=== PATIENT | male | born 1955 | race Caucasian/White ===

== ENCOUNTER 2019-06-17 12:05 | Inpatient (IN) | payer OTHER ==
[~2019-06-17] VITALS: Ht 185.4 cm; Wt 88.6 kg
--- NOTE | ~2019-06-17 | EC ---
PATIENT:PRESTON MARCELINO DATE OF SERVICE: 06/17/19 SEX: M MEDICAL RECORD: [id number] DATE OF : 55 LOCATION:D.M2 D.213 AGE OF PATIENT: 64 ADMISSION DATE: 06/17/19 REFERRING PHYSICIAN: INTERPRETING PHYSICIAN: INOCENTE BARTON MD ECHOCARDIOGRAM REPORT ECHO CHARGES 4 ECHO COMPLETE Date: 06/17/19 CLINICAL DIAGNOSIS: CP/ SOB ECHOCARDIOGRAPHIC MEASUREMENTS (adult normal given) AC root (d.<3.7cm) 2.5 cm LV Septum d (<1.2 cm> 0.7 cm Valve Excursion 1.8 cm LV Septum (systole) 0.8 cm Left Atria (s.<4.0cm> 3.5 cm LVPW d(<1.2cm) 0.9 cm RV (d.<2.3cm) 3.1 cm LVPW (sytole) 1.3 cm LV diastole(<5.6CM) 6.1 cm MV E-F(>70mm/sec) cm LV systole 5.1 cm LVOT Diameter 2.0 cm MV exc.(>10mm) cm Est.ejection fraction (50-75%) % DOPPLER: LVIT cm/sec A 68 cm/sec E 68 cm/sec LA cm/sec RVSP 27.3 mmHg LVOT 86 cm/sec AOP1/2T m/s Asc. Ao 109 cm/sec RVOT 72 cm/sec RA cm/sec PA 85 cm/sec AV Gradient Peak 4.7 mmHg AV Mean 2.5 mmHg AV Area 2.6 cm MV Gradient Peak 2.6 mmHg MV Mean 1.3 mmHg MV Area cm COMMENTS: Cashier Receptionist: Charo BUCK Almond Huller: Magalie Lopez TAPE# PACS Pericardial Effusion N DATE OF SERVICE: 06/17/2019 ECHOCARDIOGRAM FINDINGS: 1. Left ventricular chamber size is within normal limits. Left ventricular systolic function is normal. Overall ejection fraction estimated at 55% to 60%. 2. Left atrium, right atrium, and right ventricle chamber sizes are within normal limits. 3. Valvular structures have normal structure and motion. ECHOCARDIOGRAM REPORT [id number] PRESTON MARCELINO 4. Doppler interrogation only reveals trace tricuspid regurgitation, no other valvular insufficiency or stenosis. Pulmonary systolic pressure is normal estimated at 27 mmHg. 5. No evidence of pericardial effusion or left ventricular thrombus. TRANSINT:[id number] Voice Confirmation ID: [id number] DOCUMENT ID: [id number] INOCENTE BARTON MD CC: [id number] DICTATION DATE: 06/17/191650 BOTTOM HOOP DRIVER: 06/17/192026 ADM IN [place] [id number] [place] [address]
[2019-06-17] MEDS ORDERED: LIPITOR40 MG PO (12:22)
[2019-06-17] MEDS ORDERED: AMBIEN10 MG PO (12:23)
[2019-06-17] MEDS ORDERED: NEURONTIN 300300 MG PO (12:23)
[2019-06-17] MEDS ORDERED: ELIQUIS5 MG PO ×2 (12:24→12:25)
[2019-06-17 12:57] LABS: BASOPHILS 0.1 % (0-2); EOSINOPHILS 0.7 % (0-7); HEMATOCRIT 42.1 % (42.0-54.0); HEMOGLOBIN 14.7 g/dL (13.5-17.5); IMMATURE GRANULOCYTES 0.1 % (0-5); LYMPHOCYTES 18.6 % (15-50); MCH 32.2 pg (26.0-34.0); MCHC 34.9 g/dL (31.0-37.0); MCV 92.1 fL (80.0-100.0); MEAN PLATELET VOLUME 8.5 fL (7.4-10.4); MONOCYTES 12.5 % (2-11); PLATELET COUNT 285 10x3/uL (130-400); RBC 4.57 10x6/uL (4.20-6.10); RDW 12.5 % (11.5-14.5); WBC 8.2 10x3/uL (4.8-10.8)
[2019-06-17 13:10] LABS: CARBON DIOXIDE 32.8 mmol/L (21.0-32.0); CREATININE - SERUM 0.8 mg/dL (0.6-1.3); GLUCOSE 104 mg/dL (74-106); UREA NITROGEN 11 mg/dL (7-18); eGFR NON AFRICAN AMERICAN > 90 mL/min (90-120)
[2019-06-17 13:18] LABS: APTT 34.1 SECONDS (22.8-39.4); CALC OSMOLALITY 272 mosm/kg (275-300); CHLORIDE - SERUM 98 mmol/L (98-107); INR 1.21 (0.85-1.17); POTASSIUM - SERUM 3.9 mmol/L (3.5-5.1); PROTIME 14.8 SECONDS (11.6-15.0); SODIUM 137 mmol/L (136-145)
[2019-06-17 13:27] LABS: D-DIMER-QUANTITATIVE 1.87 ug/mLFEU (0.20-0.54)
[2019-06-17 13:30] VITALS: BP 131/80
[2019-06-17 13:36] LABS: ALBUMIN 3.4 g/dL (3.4-5.0); ALKALINE PHOSPHATASE 60 U/L (46-116); ALT (SGPT) 33 U/L (10-68); BILIRUBIN - TOTAL 0.65 mg/dL (0.2-1.3); CREATINE KINASE 123 UL (21-232); MAGNESIUM - SERUM 2.3 mg/dL (1.8-2.4); PROTEIN - SERUM 8.6 g/dL (6.4-8.2)
[2019-06-17 13:37] LABS: CKMB 0.6 U/L (0.0-3.6); TROPONIN-I < 0.017 ng/mL (0.000-0.060)
--- NOTE | 2019-06-17 14:09 | NUR ---
PT OUT OF ED AT THIS TIME FOR ORDERED CT SCAN, TRANSPORTED VIA STRETCHER, NO SIGNS OF DISTRESS NOTED WHEN LEAVING.
[2019-06-17 14:30] VITALS: BP 133/81
[2019-06-17 15:30] VITALS: BP 132/85
[2019-06-17 17:38] VITALS: BP 159/88; Ht 185.4 cm; Wt 88.6 kg
--- NOTE | 2019-06-17 18:50 | NUR ---
PATIENT SITTING UP IN CHAIR AT BEDSIDE. NO COMPLAINTS OR SIGNS OF DISTRESS. IV INTACT. CALL LIGHT WITHIN REACH. WAITING FOR PAIN MEDS TO BE ORDERED BY BREA BUSCH.
[2019-06-17 20:20] LABS: UDS - AMPHET NEGATIVE QUAL (NEGATIVE); UDS - BARB NEGATIVE QUAL (NEGATIVE); UDS - BENZO NEGATIVE QUAL (NEGATIVE); UDS - COCAINE NEGATIVE QUAL (NEGATIVE); UDS - OPIATE POSITIVE QUAL (NEGATIVE); UDS - PCP NEGATIVE QUAL (NEGATIVE); UDS - THC NEGATIVE QUAL (NEGATIVE)
[2019-06-17 20:30] VITALS: BP 130/73
--- NOTE | 2019-06-17 20:33 | NUR ---
RECIEVED SITTING UP ON SIDE OF THE BED HOLDING LEFT SIDE RIBS. STATING " I'M IN PAIN". NOTIFIED NARAYAN BLUM WITH NEW ORDERS FOR MORPHINE AND ZOFRAN Q4 HRPRN. ALERT AND ORIENTED X4. UP AD JAVIER. COLLECTED URINE AND SENT TO THE LAB. IV TO LEFT AC SL. DENIES ANY OTHER NEEDS AT TIS TIME.
[2019-06-18] VITALS: BP 110/68
--- NOTE | 2019-06-18 02:50 | NUR ---
RESTING IN BED WITH EYES CLOSED AT THIS TIME. REQUEST NOT TO BE WOKE UP. STATED HE HAS'NT SLEPT IN 2 DAYS D/T PAIN. WILL HONOR REQUEST. AIDE AWARE.
[2019-06-18 05:47] LABS: BASOPHILS 0.4 % (0-2); EOSINOPHILS 1.2 % (0-7); HEMATOCRIT 40.5 % (42.0-54.0); HEMOGLOBIN 13.7 g/dL (13.5-17.5); IMMATURE GRANULOCYTES 0.1 % (0-5); LYMPHOCYTES 22.3 % (15-50); MCH 31.6 pg (26.0-34.0); MCHC 33.8 g/dL (31.0-37.0); MCV 93.5 fL (80.0-100.0); MEAN PLATELET VOLUME 8.5 fL (7.4-10.4); MONOCYTES 9.1 % (2-11); NEUTROPHILS 66.9 % (40-80); PLATELET COUNT 269 10x3/uL (130-400); RBC 4.33 10x6/uL (4.20-6.10); RDW 12.8 % (11.5-14.5); WBC 6.9 10x3/uL (4.8-10.8)
[2019-06-18 06:25] LABS: CALC OSMOLALITY 272 mosm/kg (275-300); CALCIUM 9.7 mg/dL (8.5-10.1); CARBON DIOXIDE 32.4 mmol/L (21.0-32.0); CHLORIDE - SERUM 99 mmol/L (98-107); CREATININE - SERUM 0.8 mg/dL (0.6-1.3); GLUCOSE 105 mg/dL (74-106); MAGNESIUM - SERUM 2.2 mg/dL (1.8-2.4); PHOSPHOROUS 4.4 mg/dL (2.5-4.9); PRO BNP 12 pg/mL (0-125); SODIUM 137 mmol/L (136-145); UREA NITROGEN 10 mg/dL (7-18); eGFR NON AFRICAN AMERICAN > 90 mL/min (90-120)
[2019-06-18 06:27] LABS: POTASSIUM - SERUM 4.5 mmol/L (3.5-5.1)
[2019-06-18 06:57] LABS: INR 1.2 (0.85-1.17); PROTIME 14.7 SECONDS (11.6-15.0)
[2019-06-18 06:59] LABS: APTT 43.1 SECONDS (22.8-39.4)
[2019-06-18 08:00] VITALS: BP 115/65
[2019-06-18 12:00] VITALS: BP 124/82
--- NOTE | 2019-06-18 14:00 | MORECARE ---
CASE MANAGEMENT DISCHARGE SUMMARY PATIENT: PRESTON MTZ UNIT: [id number] ADM DATE: 06/17/19 AGE: 64 : 55 SEX: M ROOM/BED: D.2133 AUTHOR: LINNDOC PHYSICIAN: REFERRING PHYSICIAN: STEPHEN CORBETT MD DATE OF SERVICE: 06/18/19 Discharge Plan Patient Name: PRESTON MTZ Facility: [facility]:[place] : 1955 Planned Disposition: Home Anticipated Discharge Date: 06/20/19 Discharge Date: Expected LOS: 3 Initial Reviewer: [email or web address] Initial Review Date: 06/17/2019 Generated: 06/18/19 2:59 pm DCP- Discharge Planning Updated by [email or web address]: Mary Schafer on 06/18/19 12:[address] DC PLAN: Rerun home independently with . ANTICIPATED DC NEEDS: Denied known dc needs at time of assessment. CM met with patient and his to complete initial dc planning assessment. CM educated patient on the CM role and verbal consent given by patient to complete assessment. CM verified patient's address, phone number, and emergency contact phone numbers. Patient lives at home independently with his . At discharge patient plans to return home and feels this is a safe discharge. CM discussed availability of home health, rehab services, and medical equipment. Patient denied known discharge needs at this time. Transportation provider at discharge will be his . CM will continue to follow and will assist as needed with dc plans/needs. Mary Schafer RN, [facility] DCPIA - Discharge Planning Initial Assessment Updated by [email or web address]: Mary Schafer on 06/18/19 1:55 pm * Is the patient Alert and Oriented? Yes * How many steps to enter\exit or inside your home? * PCP Dr. Nath in [place] * Pharmacy [facility] in [place] * Preadmission Environment Home with Family * ADLs Independent * Equipment None * List name and contact numbers for known caregivers / representatives who currently or will assist patient after discharge: Penelope Mtz - - [phone] * Verbal permission to speak to the caregivers and representatives has been obtained from the patient. Yes * Community resources currently utilized None * Additional services required to return to the preadmission environment? No * Can the patient safely return to the preadmission environment? Yes * Has this patient been hospitalized within the prior 30 days at any hospital? No Patient Name: PRESTON MTZ Page [id number] at 1400 All edits/amendments must be made on the electronic document DICTATION DATE: 06/18/191358 ASPHALT SMOOTHER: JOANNA 06/18/19 135 RPT#: [id number] DC DATE: STATUS: ADM IN [facility] [address] [place] [address] END OF REPORT
[2019-06-18 14:46] LABS: INR 1.15 (0.85-1.17); PROTIME 14.1 SECONDS (11.6-15.0)
[2019-06-18 16:00] VITALS: BP 116/70
--- NOTE | 2019-06-18 19:48 | NUR ---
PT SITTING UP ON THE SIDE OF BED ALERT AND ORIENTED X4 COMPLAING OF CONSTIPATION. PT STATES THAT HE HASN'T HAD A BOWEL MOVEMENT IN X3 DAYS. WARM PRUNE JUICE PROVIDED. PT DENIES ANY FURTHER NEEDS AT THIS TIME. BED LOW CALL LIGHT WITHIN REACH. WILL CONTINUE TO MONITOR.
[2019-06-18 20:30] VITALS: BP 127/75
--- NOTE | 2019-06-19 04:11 | NUR ---
I have reviewed this patient and I concur with the Shift Assessment completed by the Licensed Practical Nurse today this shift.
[2019-06-19 05:36] LABS: BASOPHILS 0.2 % (0-2); HEMATOCRIT 37.9 % (42.0-54.0); HEMOGLOBIN 12.7 g/dL (13.5-17.5); IMMATURE GRANULOCYTES 0.2 % (0-5); LYMPHOCYTES 28.5 % (15-50); MCH 31.4 pg (26.0-34.0); MCHC 33.5 g/dL (31.0-37.0); MCV 93.8 fL (80.0-100.0); MEAN PLATELET VOLUME 8.5 fL (7.4-10.4); MONOCYTES 13.1 % (2-11); PLATELET COUNT 291 10x3/uL (130-400); RBC 4.04 10x6/uL (4.20-6.10); RDW 12.6 % (11.5-14.5)
[2019-06-19 05:57] LABS: CALC OSMOLALITY 274 mosm/kg (275-300); CALCIUM 8.8 mg/dL (8.5-10.1); CHLORIDE - SERUM 101 mmol/L (98-107); CREATININE - SERUM 0.7 mg/dL (0.6-1.3); GLUCOSE 105 mg/dL (74-106); MAGNESIUM - SERUM 2.1 mg/dL (1.8-2.4); POTASSIUM - SERUM 4.1 mmol/L (3.5-5.1); SODIUM 138 mmol/L (136-145); UREA NITROGEN 9 mg/dL (7-18); eGFR NON AFRICAN AMERICAN > 90 mL/min (90-120)
--- NOTE | 2019-06-19 07:17 | NUR ---
PT AWAKE AND ORIETNED, C/O CONSTIPATION. NO OTHER COMPLAINTS/CONCERNS AT THIS TIME, NO FAMILY PRESENT AT [facility]. CL IN REACH, SRX2.
[2019-06-19 08:50] VITALS: BP 118/70
--- NOTE | 2019-06-19 10:02 | NUR ---
PT ATE BREAKFAST, NO COMPLAINTS/CONCERNS. STATES HE'S BORED BUT IT COULD BE WORSE. NO FAMILY PRESEENT AT BEDSIDE. CL IN REACH, SRX2.
--- NOTE | 2019-06-19 10:44 | NUR ---
I have reviewed this patient and I concur with the Shift Assessment completed by the Licensed Practical Nurse today this shift.
[2019-06-19 12:56] VITALS: BP 150/84
[2019-06-19 17:30] VITALS: BP 149/84
--- NOTE | 2019-06-19 18:48 | NUR ---
PT AWAKE AND ORIENTED, NO COMPLAINTS AT THIS TIME OTHER THAN LEG CRAMPS/PAIN. NO FAMILY PRESENT AT BEDSIDE. CL IN REACH, SRX2. PT HAS BEEN PLESANT AND POLITE.
[2019-06-19 20:04] VITALS: BP 134/74
--- NOTE | 2019-06-19 22:24 | NUR ---
PT ALERT AND ORIENTED X3. VITAL SIGNS ARE STABLE. NO SIGNS AND SYMPTOMS OF DISTRESS AT THIS TIME. RESPIRATIONS EVEN AND UNLABORED. PAIN LEVEL 8. PRN MEDICATION GIVEN. PT ENCOURAGE TO WALK IN HALLWAY TO HELP WITH BOWELL MOVEMENT. WILL CONTINUE TO MONITOR.
[2019-06-20 00:01] VITALS: BP 131/78
--- NOTE | 2019-06-20 03:32 | NUR ---
I have reviewed this patient and I concur with the Shift Assessment completed by the Licensed Practical Nurse today this shift.
[2019-06-20 06:40] LABS: INR 1.12 (0.85-1.17); PROTIME 13.8 SECONDS (11.6-15.0)
[2019-06-20 06:42] LABS: BASOPHILS 0.2 % (0-2); EOSINOPHILS 1.2 % (0-7); HEMATOCRIT 38.5 % (42.0-54.0); HEMOGLOBIN 12.9 g/dL (13.5-17.5); IMMATURE GRANULOCYTES 0.2 % (0-5); LYMPHOCYTES 27.6 % (15-50); MCH 31.2 pg (26.0-34.0); MCHC 33.5 g/dL (31.0-37.0); MEAN PLATELET VOLUME 8.7 fL (7.4-10.4); MONOCYTES 10.6 % (2-11); NEUTROPHILS 60.2 % (40-80); PLATELET COUNT 339 10x3/uL (130-400); RBC 4.14 10x6/uL (4.20-6.10); RDW 12.3 % (11.5-14.5); WBC 5.9 10x3/uL (4.8-10.8)
[2019-06-20 06:45] LABS: CALC OSMOLALITY 276 mosm/kg (275-300); CALCIUM 9.4 mg/dL (8.5-10.1); CARBON DIOXIDE 32.5 mmol/L (21.0-32.0); CHLORIDE - SERUM 101 mmol/L (98-107); CREATININE - SERUM 0.8 mg/dL (0.6-1.3); GLUCOSE 104 mg/dL (74-106); MAGNESIUM - SERUM 1.9 mg/dL (1.8-2.4); PHOSPHOROUS 4.2 mg/dL (2.5-4.9); SODIUM 139 mmol/L (136-145); UREA NITROGEN 10 mg/dL (7-18); eGFR NON AFRICAN AMERICAN > 90 mL/min (90-120)
--- NOTE | 2019-06-20 07:04 | NUR ---
PT AWAKE AND ORIETNED, COMPLAINS OF NEEDING TO HAVE LARGE B.M D/T CONSITPATION. WILL ADRESS WITH DR. NO OTHER COMPLAINTS, VERY COMPLIMENTARY ABOUT HIS CARE. NO FAMILY PRESENT AT BEDSIDE, CL IN REACH, SRX2.
[2019-06-20 08:00] VITALS: BP 142/86
--- NOTE | 2019-06-20 09:02 | NUR ---
SPOKE WITH ALESHA DURANT, ORDERED DUCOLAX SUPPOSITORY AND ADMINISTERED DOSE TO PT. ADVISED HIM TO DRINK WATER AND HIT HIS CALL LIGHT IF HE HAS A B.M. PT IS HOPEFUL TO GO HOME. CL IN REACH, SRX2, NO FAMILY PRESENT AT BEDSIDE.
--- NOTE | 2019-06-20 10:46 | NUR ---
I have reviewed this patient and I concur with the Shift Assessment completed by the Licensed Practical Nurse today this shift.
--- NOTE | 2019-06-20 11:43 | NUR ---
PT REPORTS HE HAS HAD A LARGE BM POST THE DUCOLOX SUPPOSITORIES. HE IS UPSET HE HAS NOT YET RECIEVED AT D/C ORDER BECAUSE DR. CORBETT TOLD HIM YESTERDAY EVENING THAT HE WOULD BE GOING HOME AT 1200. NO ORDER HAS BEEN PUT IN, PAGED WELDING MACHINE OPERATOR SUBMERGED [employer] TO ASK BECAUSE HE WANTS TO LEAVE [facility] SINCE HE HAS NOW HAD HIS BM AND FEELS MUCH BETTER AND HIS RIDE (DAUGHTER) IS HERE. CL IN REACH, SRX2.
--- NOTE | 2019-06-20 12:04 | NUR ---
PT STATES HE WILL "RIP HIS OWN STUFF OFF" AND AMA IF HE DOES NOT HAVE A D/C AND THE PAPERWORK DONE WITHIN AN HOUR. CALLED ALESHA DURANT AND SHE STATED THEY WOULD D/C HIM BUT I WOULD NEED TO SPEAK TO DR. BOWENS FIRST IN REGARDS TO PTS INR LEVELS AND FOLLOW UP APTS AND MEDICATIONS. SPOKE TO DR. BOWENS AND WAS TOLD HE NEEDED A PRESCRIPTION FOR LOVENOX 1MG/KG X DAYS AND COUMADIN 5MG DAILY. HE WOULD NEED TO F/U WITH DR. BOWENS AND/OR HIS PCP IN ONE WEEK FOR A PT/INR LAB DRAW. PAGED GAMBLING BOX PERSON TO INFORM HER OF THIS, LET PT KNOW. HE IS CURRENTLY COMPLIENT BUT HIS DAUGHTER STATED THEY'D JUST AMA IF IT WASN'T ALL DONE BY 1300. CL IN REACH, SRX2.
[2019-06-20] MEDS ORDERED: COUMADIN3 MG PO (12:15)
[2019-06-20] MEDS ORDERED: LOVENOX INJ100 MG/ML SC (12:15)
--- NOTE | 2019-06-20 12:43 | NUR ---
RX FOR COUMADIN WAS ISSUED FOR #7 TABS. SPOKE WITH CARLEEN WEINSTEIN APN, AND SHOULD BE FOR 9MG X 7 DAYS. SPOKE TO ARACELI RAMOS, AT [facility] IN [place], AND ADVISED.
--- NOTE | 2019-06-20 13:14 | NUR ---
PT ESCORTED OUT VIA WHEELCHAIR TO POV, DAUGHTER AND DRIVING. NO COMPLAINTS, COMPLIMENTS CARE AND STAFF.
--- NOTE | 2019-06-21 10:08 | MORECARE ---
CASE MANAGEMENT DISCHARGE SUMMARY PATIENT: PRESTON MTZ UNIT: [id number] ADM DATE: 06/17/19 AGE: 64 : 55 SEX: M ROOM/BED: D.2133 AUTHOR: LINNDOC PHYSICIAN: REFERRING PHYSICIAN: STEPHEN CORBETT MD DATE OF SERVICE: 06/21/19 Discharge Plan Patient Name: PRESTON MTZ Facility: [facility]:[place] : 1955 Planned Disposition: Home Anticipated Discharge Date: 06/20/19 Discharge Date: 06/20/2019 Expected LOS: 3 Initial Reviewer: [email or web address] Initial Review Date: 06/17/2019 Generated: 06/21/19 11:07 am DCP- Discharge Planning Updated by [email or web address]: Mary Schafer on 06/18/19 12:[address] DC PLAN: Rerun home independently with . ANTICIPATED DC NEEDS: Denied known dc needs at time of assessment. CM met with patient and his to complete initial dc planning assessment. CM educated patient on the CM role and verbal consent given by patient to complete assessment. CM verified patient's address, phone number, and emergency contact phone numbers. Patient lives at home independently with his . At discharge patient plans to return home and feels this is a safe discharge. CM discussed availability of home health, rehab services, and medical equipment. Patient denied known discharge needs at this time. Transportation provider at discharge will be his . CM will continue to follow and will assist as needed with dc plans/needs. Mary Schafer RN, [facility] DCPIA - Discharge Planning Initial Assessment Updated by [email or web address]: Mary Schafer on 06/18/19 1:55 pm * Is the patient Alert and Oriented? Yes * How many steps to enter\exit or inside your home? * PCP Dr. Nath in [place] * Pharmacy [facility] in [place] * Preadmission Environment Home with Family * ADLs Independent * Equipment None * List name and contact numbers for known caregivers / representatives who currently or will assist patient after discharge: Penelope Mtz - - [phone] * Verbal permission to speak to the caregivers and representatives has been obtained from the patient. Yes * Community resources currently utilized None * Additional services required to return to the preadmission environment? No * Can the patient safely return to the preadmission environment? Yes * Has this patient been hospitalized within the prior 30 days at any hospital? No Last DP export: 06/18/19 1:00 p Patient Name: PRESTON MTZ Page [phone] at 1008 All edits/amendments must be made on the electronic document DICTATION DATE: 06/21/19 1007 SUPERVISOR PUMPING STATION: JOANNA 06/21/19 [facility] RPT#: [id number] DC DATE:06/20/19 STATUS: DIS IN [facility] [address] [place] [address] END OF REPORT
[2019-06-21 16:08] LABS: CEA 1.2 ng/mL (0.0-4.7)
== END 2019-06-20 13:15 | disposition home or self-care (01) | DRG 175 ==
LOC: EDSEX 12:05 → D.ER 12:05 → D.M2 15:26
PROVIDERS: Emergency Medicine; Internal Medicine Hematology & Oncology; ADMIT Internal Medicine Nephrology; ATTEND Internal Medicine Nephrology
DX: I26.99 Other pulmonary embolism without acute cor pulmonale (principal); J96.01 Acute respiratory failure with hypoxia; E78.5 Hyperlipidemia, unspecified; G47.00 Insomnia, unspecified; G62.9 Polyneuropathy, unspecified; Z87.891 Personal history of nicotine dependence